=== PATIENT | male | born 1965 | race Caucasian/White ===

== ENCOUNTER 2020-04-06 14:09 | Emergency (ER) | payer SELFPAY ==
--- NOTE | ~2020-04-06 | XR_ITS ---
EXAMINATION: XR knee LT min 4V DATE: 04/06/2020 15:49 INDICATION: Lateral sided left knee pain TECHNIQUE: Anteroposterior, 2 oblique and crosstable lateral views of the left knee were obtained COMPARISON: None. FINDINGS: Alignment is normal. No acute fracture. There is focal benign-appearing periosteal reaction/callus f ormation at the neck of the proximal left fibula which could enthesopathic ossification or callus for mation related to old trauma. Chondrocalcinosis is evident in all 3 compartments of the knee. Joint s paces appear relatively preserved although joint space narrowing can be underestimated on nonweightbe aring imaging. Moderate-sized left knee joint effusion without layering lipohemarthrosis. Minimal ent hesopathic ossification of the distal quadriceps tendon. IMPRESSION: 1. Moderate-sized left knee joint effusion without acute osseous abnormality. 2. Tricompartmental chondrocalcinosis. Reviewed, dictated and finalized at location A. [facility] T[facility] COORDINATOR
[2020-04-06 14:40] VITALS: BP 156/102; PULSE 91; RESP 16; TEMP 37; O2SAT 99
[2020-04-06 17:20] LABS: Basophils Percent Auto 0.4 % (0.2-1.2); Eosinophils Absolute Auto 0.1 K/mm3 (0-0.3); Eosinophils Percent Auto 0.4 % (0-4.4); Hematocrit 42.1 % (42.0-52.0); Hemoglobin 14.4 g/dL (14.0-18.0); Immature Granulocyte Absolute 0.04 K/mm3 (0.00-0.031); Immature Granulocyte Percent A 0.4 % (0-0.5); Lymphocytes Absolute Auto 1.83 K/mm3 (0.9-3.2); Lymphocytes Percent Auto 16.4 % (18.3-44.2); Mean Corpuscular HGB Conc 34.2 g/dl (32-36); Mean Corpuscular Hemoglobin 29.2 pg (26-34); Mean Corpuscular Volume 85.4 fl (80-100); Mean Platelet Volume 9.9 fl (7.4-10.4); Monocytes Absolute Auto 0.9 K/mm3 (0.1-0.6); Monocytes Percent Auto 8.4 % (2.6-8.5); Neutrophils Absolute Auto 8.3 K/mm3 (1.3-6.7); Platelet Count Result 204 k/mm3 (150-375); Red Blood Count 4.93 M/mm3 (4.6-6.20); Red Cell Distribution Width 11.9 % (11.5-14.5); White Blood Count 11.2 K/mm3 (4.5-10.0)
[2020-04-06] MEDS: KETOROLAC 30 MG/ML VIAL (*BKC) IV PUSH (17:22)
[2020-04-06 17:34] LABS: Alanine Aminotransferase 18 U/L (4-50); Alkaline Phosphatase 98 U/L (38-126); Anion Gap 5 mmol/L (8-16); Aspartate Amino Transferase 21 U/L (17-59); Bilirubin,Total 0.4 mg/dL (0.2-1.3); Blood Urea Nitrogen 14 mg/dL (9-20); Calcium 8.7 mg/dL (8.4-10.2); Carbon Dioxide 30 mmol/L (22-30); Chloride 103 mmol/L (98-107); Estimated CRCL calculation 113 ml/min; Estimated Glomerular Filt Rate > 60; Glucose 100 mg/dL (75-110); Potassium 4.1 mmol/L (3.4-5.0); Sodium 138 mmol/L (137-145)
--- NOTE | 2020-04-06 17:55 | ED.GENADULT ---
HPI - General Adult General Chief complaint: Extremity Injury, Lower Stated complaint: left knee injury Time Seen by Provider: 04/06/20 15:47 Source: patient and family Mode of arrival: ambulatory Limitations: no limitations History of Present Illness HPI narrative: Patient is a 54-year-old male who presents with tender swollen left knee noticed this morning had slight pain yesterday denies injury or trauma or similar occurrence patient notes swelling pain worse with activity and movement with decreased range of motion attributed to swelling patient has not taken anything for symptoms. Patient denies fever or recent illness Related Data Allergies Allergy/AdvReac Type Severity Reaction Status Date / Time No Known Allergies Allergy Verified 04/06/20 15:27 Review of Systems Review of Systems: All systems reviewed & are unremarkable except as noted in HPI and below PMFSH Social History Social History Gender identity (if verbalized by the patient): Male Exam Narrative: Exam Narrative: GENERAL: Well-appearing, obese, and in no acute distress. HEAD: Normocephalic, atraumatic. EYES: PERRLA and EOMI. ENT: Nares clear, no rhinorrhea or epistaxis. Mucous membranes moist. CHEST: Clear to auscultation. No respiratory distress. No wheezes rales or rhonchi HEART: Regular rate and rhythm. No murmur heard. Normal peripheral pulses. EXTREMITIES: Patient with swollen tender left knee joint slight warmth to touch on the anterior aspect of the knee no circumferential erythema no wounds no drainage no lymphangitic streaking SKIN: Warm, dry, no rash. NEURO: No focal deficits. Alert and oriented x3. Neurovascularly intact. Capillary refill less than 2-second PSYCH: Normal mood and affect. Course Course Emergency Course: Patient in the room no distress was evaluated in the emergency department likely effusion secondary to arthritis discussion was made with orthopedic surgeon who would like the patient to follow in clinic with anti-inflammatory medications as his therapy with rest provided with reasons to return patient agrees with this plan Consultations Consultation #1: Patient case discussed in entirety with orthopedic surgery who would like the patient to follow in clinic and to be placed on anti-inflammatory medication in the interim Date: 04/06/20 Time: 19:53 Vital Signs Vital signs: Vital Signs Temperature 98.6 F 04/06/20 14:40 Pulse Rate 91 04/06/20 14:40 Respiratory Rate 16 04/06/20 14:40 Blood Pressure 156/102 H 04/06/20 14:40 Pulse Oximetry 99 04/06/20 14:40 Temperature 98.6 F 04/06/20 14:40 Pulse Rate 91 04/06/20 14:40 Respiratory Rate 16 04/06/20 14:40 Blood Pressure 156/102 H 04/06/20 14:40 Pulse Oximetry 99 04/06/20 14:40 Procedures Joint Aspiration/Injection Joint Asp./Inject. 1: Joint Aspiration Date: 04/06/20 Joint Aspiration Time: 19:55 Time Out Performed: Yes Side of body: left Joint Aspirated: knee Skin Prep: Povidone-Iodine1% Local Anesthetic: lidocaine 1% and with epi Needle Size Used: 18G Fluid Obtained: clear Total fluid obtained (mL): 65 Patient Tolerated Procedure: well Complications: none Medical Decision Making MDM Narrative Medical decision making narrative: Patients injury or pain is consistent with musculoskeletal etiology. No signs of neurological or vascular compromise on exam. Compartments and tisues are soft without signs of compartment syndrome. Pain is felt appropriate for further evaluation on an outpatient basis. Patient evaluated likely having effusion secondary to arthritis patient given reasons to return and agrees to follow with orthopedic surgery Vital Signs Vital Signs: Vital Signs Temperature 98.6 F 04/06/20 14:40 Pulse Rate 91 04/06/20 14:40 Respiratory Rate 16 04/06/20 14:40 Blood Pressure 156/102 H
[2020-04-06 17:59] LABS: Erythrocyte Sedimentation Rate 23 mm/hr (0-20)
[2020-04-06 18:15] VITALS: BP 152/84; PULSE 90; RESP 18; O2SAT 98
[2020-04-06 19:09] LABS: Appearance Synovial Fluid Cloudy (Clear); Color Synovial Fluid Yellow (Colorless); Source Synovial Fluid Synovial fluid
[2020-04-06 19:10] LABS: Lymphocytes Synovial Fluid 17 %; Monocytes Synovial Fluid 1 %; Neutrophils Synovial Fluid 82 % (0-25); Nucleated Cell Synovial Fluid 279 /uL (0-200); RBC Synovial Fluid 0 /uL (0-0)
[2020-04-06 19:53] LABS: Crystals Synovial Fluid None Seen (None Seen)
[2020-04-06 20:08] VITALS: BP 148/72; PULSE 88; RESP 16; O2SAT 97
[2020-04-08 13:59] LABS: Glucose Synovial Fluid 34 mg/dL
== END 2020-04-06 20:23 | disposition home or self-care (01) ==
PROVIDERS: Emergency Medicine Emergency Medical Services; Emergency Provider Emergency Medicine; Referring Provider Family Medicine
DX: M25.462 Effusion, left knee (principal); M11.262 Other chondrocalcinosis, left knee
CPT/HCPCS: 20610; 36415; 73564; 80053; 82945; 84157; 84550; 85025; 85652; 86140; 87070; 87075; 87205; 89051; 89060; 96374; 99284; J1885